=== PATIENT | female | born 1970 | race Caucasian/White ===

== ENCOUNTER 2016-06-08 17:12 | Emergency (ER) | payer MEDICARE ==
[2016-06-08 17:47] LABS: BASOPHIL 0.6 % (0-2); EOSINOPHIL 1.3 % (0-5); HCT 43.3 % (37.0-47.0); HGB 14.9 g/dl (12.5-16.0); LYMPHOCYTE 22.1 % (15-48); MCH 29.2 pg (25.0-31.0); MCHC 34.4 g/dL (32.0-36.0); MCV 84.9 fL (78.0-100.0); MPV 8.7 fL (6.0-9.5); PLT 472 K/uL (150-400); RDW 13.7 % (11.5-14.0); WBC 18.3 K/uL (4.0-10.5)
[2016-06-08 17:57] LABS: INR 0.91 (0.9-1.2); PROTHROMBIN TIME 11.9 SECONDS (11.7-14.0)
[2016-06-08 18:08] LABS: ALBUMIN 4.2 g/dL (3.5-5.0); BILIRUBIN - TOTAL 0.3 mg/dL (0.1-1.0); CREATININE 0.6 mg/dL (0.5-1.0); GLOBULIN (CALCULATION) 2.8 g/dL (2.2-4.2); MAGNESIUM 2.52 mg/dL (1.40-2.10); MYOGLOBIN 21 ng/mL (26-65); POTASSIUM 4.3 mmol/L (3.5-5.1); PRO-BNP 11 pg/mL (0-125); TROPONIN T < 0.010 ng/mL
== END 2016-06-08 19:17 | disposition home or self-care (01) ==
LOC: FER 17:12
PROVIDERS: Emergency Medicine
DX: R00.2 Palpitations (principal); R06.02 Shortness of breath; R51 Headache
CPT/HCPCS: 36415; 71010; 80053; 82550; 82553; 83735; 83874; 83880; 84443; 84484; 85025; 85610; 85730; 93005

== ENCOUNTER 2016-06-12 21:04 | Emergency (ER) | payer MEDICARE | END 2016-06-13 02:06 | disposition home or self-care (01) | LOC: FER 21:04 | DX: J02.0 Streptococcal pharyngitis (principal); J30.9 Allergic rhinitis, unspecified | CPT/HCPCS: 87450; 87804; 87899; J0561 ==

== ENCOUNTER 2020-05-04 23:06 | Emergency (ER) | payer MEDICARE ==
[~2020-05-04 23:06] MED LIST: BACTRIM DS TAB1 EACH PO; FLEXERIL10 MG PO; HYDROCODONE-APA1 TAB PO; IMODIUM2 MG PO; LIDOCAINE 5% P1 EACH TOP; MACROBID100 MG PO; PHENTERMINE H37.5 MG PO; PYRIDIUM200 MG PO; ROBAXIN750 MG PO; ZOFRAN8 MG PO
[2020-05-05 00:53] LABS: BILIRUBIN NEGATIVE (NEGATIVE); BLOOD TRACE-INTACT Ery/uL (NEGATIVE); CLARITY CLEAR (CLEAR); COLOR YELLOW (YELLOW); GLUCOSE (U) NORMAL (NORMAL); LEUKOCYTES NEGATIVE Leu/uL (NEGATIVE); NITRITE NEGATIVE (NEGATIVE); PROTEIN NEGATIVE (NEGATIVE); SPECIFIC GRAVITY >=1.030 (1.001-1.030); UROBILINOGEN 0.2 mg/dL (0.2-1.0); pH 5.5 (5.0-9.0)
[2020-05-05 00:58] LABS: BASOPHIL 0.7 % (0-2); EOSINOPHIL 2.2 % (0-5); HCT 40.1 % (37.0-47.0); HGB 13.6 g/dl (12.5-16.0); LYMPHOCYTE 39.3 % (15-48); MCH 29.5 pg (25.0-31.0); MCHC 33.9 g/dL (32.0-36.0); MONOCYTE 6.4 % (0-12); MPV 8.8 fL (6.0-9.5); NRBC 0; PLT 350 K/uL (150-400); RBC 4.61 M/uL (4.20-5.40); RDW 13.2 % (11.5-14.0); WBC 11.3 K/uL (4.0-10.5)
[2020-05-05 01:05] LABS: AMORPHOUS URATES CRYSTALS MODERATE; BACTERIA TRACE; MUCOUS TRACE
[2020-05-05 01:06] LABS: SQUAMOUS EPITHELIAL CELLS RARE; URINARY WBC RARE
[2020-05-05 01:13] LABS: ALBUMIN 3.2 g/dL (3.4-5.0); BILIRUBIN - TOTAL 0.3 mg/dL (0.2-1.0); BUN/CREAT RATIO (CALC) 19.7 RATIO; CREATININE 0.71 mg/dL (0.51-0.95); GLOBULIN (CALCULATION) 3.8 g/dL; POTASSIUM 3.5 mmol/L (3.5-5.1)
[2020-05-05] MEDS ORDERED: KETOROLAC TROME10 MG PO (03:03)
== END 2020-05-05 03:09 | disposition home or self-care (01) ==
LOC: FER 23:06
PROVIDERS: Emergency Medicine Emergency Medical Services
DX: M54.5 Low back pain (principal); I10 Essential (primary) hypertension
CPT/HCPCS: 36415; 72131; 80053; 81001; 85025; J1885; J2405

== ENCOUNTER 2020-06-20 01:05 | Emergency (ER) | payer MEDICARE ==
[~2020-06-20 01:05] MED LIST changes: +KETOROLAC TROME10 MG PO
[2020-06-20 06:19] LABS: BASOPHIL 0.8 % (0-2); EOSINOPHIL 2.1 % (0-5); HCT 39.2 % (37.0-47.0); HGB 13.5 g/dl (12.5-16.0); LYMPHOCYTE 37.9 % (15-48); MCH 29.8 pg (25.0-31.0); MCHC 34.4 g/dL (32.0-36.0); MCV 86.5 fL (78.0-100.0); MONOCYTE 8.2 % (0-12); MPV 9.3 fL (6.0-9.5); NEUTROPHIL 50.8 % (41-80); PLT 385 K/uL (150-400); RBC 4.53 M/uL (4.20-5.40); RDW 12.6 % (11.5-14.0); WBC 8.7 K/uL (4.0-10.5)
[2020-06-20 06:30] LABS: ALBUMIN 3.4 g/dL (3.4-5.0); BILIRUBIN - TOTAL 0.5 mg/dL (0.2-1.0); BUN/CREAT RATIO (CALC) 22.5 RATIO; CREATININE 0.8 mg/dL (0.51-0.95); GLOBULIN (CALCULATION) 3.6 g/dL; POTASSIUM 3.8 mmol/L (3.5-5.1)
[2020-06-20 06:58] LABS: EOSINOPHIL(M) 2 % (0-5); LYMPHOCYTE(M) 31 % (15-48); MONOCYTE(M) 7 % (0-12); NEUTROPHILS(M) 59 % (41-80); PLATELET ESTIMATE NORMAL; TOTAL CELL COUNT 100; VARIANT LYMPHOCYTE 1
[2020-06-20 06:59] LABS: PLATELET MORPHOLOGY NORMAL
== END 2020-06-20 09:47 | disposition home or self-care (01) ==
LOC: FER 01:05
PROVIDERS: Student in an Organized Health Care Education/Training Program
DX: M51.36 Other intervertebral disc degeneration, lumbar region (principal); Z98.890 Other specified postprocedural states
CPT/HCPCS: 36415; 72157; 72158; 80053; A9579; J1885; J2060; J2270; J2405

== ENCOUNTER 2020-08-29 04:37 | Emergency (ER) | payer MEDICARE ==
[2020-08-29] MEDS ORDERED: CLARITIN10 MG PO (05:42)
[2020-08-29] MEDS ORDERED: FLONASE ALLER15.8 ML (05:42)
== END 2020-08-29 05:59 | disposition home or self-care (01) ==
LOC: FER 04:37
DX: J30.2 Other seasonal allergic rhinitis (principal)
CPT/HCPCS: 99283; J1885

== ENCOUNTER 2021-03-14 01:40 | Emergency (ER) | payer MEDICARE ==
[~2021-03-14 01:40] MED LIST changes: +CLARITIN10 MG PO; +FLONASE ALLER15.8 ML
[2021-03-14] MEDS ORDERED: KETOROLAC TROME10 MG PO (04:03)
[2021-03-14] MEDS ORDERED: CYCLOBENZAPRINE10 MG PO (04:03)
== END 2021-03-14 03:15 | disposition home or self-care (01) ==
LOC: FER 01:40
DX: M54.50 Low back pain, unspecified (principal); G89.29 Other chronic pain
CPT/HCPCS: 96372; 99283; J1170; J1885

== ENCOUNTER 2021-03-19 20:59 | Emergency (ER) | payer MEDICARE ==
[~2021-03-19 20:59] MED LIST changes: +CYCLOBENZAPRINE10 MG PO
[2021-03-19 22:19] LABS: CORONAVIRUS 2019 SARS-COV-2 NEGATIVE (NEGATIVE); INFLUENZA A NAA NEGATIVE (NEGATIVE)
== END 2021-03-19 23:01 | disposition home or self-care (01) ==
LOC: FER 20:59
PROVIDERS: Internal Medicine
DX: B34.9 Viral infection, unspecified (principal); I50.9 Heart failure, unspecified; Z20.822 Contact with and (suspected) exposure to COVID-19
CPT/HCPCS: 99283; U0002

== ENCOUNTER 2021-03-21 18:52 | Emergency (ER) | payer MEDICARE ==
[2021-03-21 22:58] LABS: CORONAVIRUS 2019 SARS-COV-2 NEGATIVE (NEGATIVE); INFLUENZA A NAA NEGATIVE (NEGATIVE)
[2021-03-21 23:01] LABS: BASOPHIL 1.2 % (0-2); EOSINOPHIL 5.7 % (0-5); HCT 42.7 % (37.0-47.0); HGB 14.2 g/dl (12.5-16.0); LYMPHOCYTE 33.6 % (15-48); MCH 28.3 pg (25.0-31.0); MCHC 33.3 g/dL (32.0-36.0); MCV 85.2 fL (78.0-100.0); MONOCYTE 8.5 % (0-12); MPV 8.9 fL (6.0-9.5); NEUTROPHIL 50.5 % (41-80); NRBC 0; PLT 354 K/uL (150-400); RBC 5.01 M/uL (4.20-5.40); RDW 13.4 % (11.5-14.0); WBC 10.3 K/uL (4.0-10.5)
[2021-03-21 23:25] LABS: ALBUMIN 3.7 g/dL (3.4-5.0); BILIRUBIN - TOTAL 0.3 mg/dL (0.2-1.0); BUN/CREAT RATIO (CALC) 21.9 RATIO; CREATININE 0.73 mg/dL (0.51-0.95); GLOBULIN (CALCULATION) 3.8 g/dL; TOTAL PROTEIN 7.5 g/dL (6.4-8.2)
[2021-03-21 23:52] LABS: BILIRUBIN NEGATIVE (NEGATIVE); BLOOD TRACE-INTACT Ery/uL (NEGATIVE); CLARITY CLEAR (CLEAR); COLOR YELLOW (YELLOW); GLUCOSE (U) NORMAL (NORMAL); LEUKOCYTES NEGATIVE Leu/uL (NEGATIVE); NITRITE NEGATIVE (NEGATIVE); PROTEIN NEGATIVE (NEGATIVE); SPECIFIC GRAVITY >=1.030 (1.001-1.030); UROBILINOGEN 0.2 mg/dL (0.2-1.0); pH 5.5 (5.0-9.0)
[2021-03-21 23:57] LABS: SQUAMOUS EPITHELIAL CELLS RARE
== END 2021-03-22 03:27 | disposition home or self-care (01) ==
LOC: FER 18:52
PROVIDERS: Internal Medicine; Physician Assistant
DX: B34.9 Viral infection, unspecified (principal); R91.1 Solitary pulmonary nodule; F17.290 Nicotine dependence, other tobacco product, uncomplicated; Z20.822 Contact with and (suspected) exposure to COVID-19
CPT/HCPCS: 36415; 71046; 71275; 80053; 81001; 84484; 85025; 85379; 93005; J1885; J7040; U0002

== ENCOUNTER 2021-09-04 22:29 | Emergency (ER) | payer MEDICARE ==
[2021-09-04 23:01] LABS: BASOPHIL 0.6 % (0-2); EOSINOPHIL 2.9 % (0-5); HCT 40.3 % (37.0-47.0); HGB 13.8 g/dl (12.5-16.0); MCH 28.7 pg (25.0-31.0); MCHC 34.2 g/dL (32.0-36.0); MCV 83.8 fL (78.0-100.0); MONOCYTE 6.5 % (0-12); MPV 8.9 fL (6.0-9.5); NEUTROPHIL 50.8 % (41-80); NRBC 0; PLT 310 K/uL (150-400); RBC 4.81 M/uL (4.20-5.40); RDW 13.2 % (11.5-14.0); WBC 8.2 K/uL (4.0-10.5)
[2021-09-04 23:21] LABS: ALBUMIN 3.5 g/dL (3.4-5.0); BILIRUBIN - TOTAL 0.4 mg/dL (0.2-1.0); CREATININE 0.86 mg/dL (0.51-0.95); GLOBULIN (CALCULATION) 3.6 g/dL; POTASSIUM 2.7 mmol/L (3.5-5.1); TOTAL PROTEIN 7.1 g/dL (6.4-8.2)
== END 2021-09-05 00:55 | disposition home or self-care (01) ==
LOC: FER 22:29
PROVIDERS: Emergency Medicine
DX: I50.9 Heart failure, unspecified (principal); R07.89 Other chest pain; I25.10 Atherosclerotic heart disease of native coronary artery without angina pectoris; Z79.899 Other long term (current) drug therapy
CPT/HCPCS: 36415; 71045; 80053; 83880; 84484; 85025; 93005; J3480

== ENCOUNTER 2021-11-02 22:17 | Day surgery (SDCO) | payer MEDICARE ==
[~2021-11-02] VITALS: Ht 167.6 cm; Wt 140.0 kg
[2021-11-02 23:28] LABS: BASOPHIL 0.9 % (0-2); EOSINOPHIL 2.2 % (0-5); HCT 44.3 % (37.0-47.0); HGB 15.5 g/dl (12.5-16.0); LYMPHOCYTE 37.1 % (15-48); MCH 28.2 pg (25.0-31.0); MCV 80.7 fL (78.0-100.0); MONOCYTE 7.6 % (0-12); MPV 9.6 fL (6.0-9.5); NRBC 0; PLT 370 K/uL (150-400); RBC 5.49 M/uL (4.20-5.40); RDW 13.3 % (11.5-14.0)
[2021-11-02 23:54] LABS: ALBUMIN 3.9 g/dL (3.4-5.0); BILIRUBIN - TOTAL 0.7 mg/dL (0.2-1.0); BUN/CREAT RATIO (CALC) 14.9 RATIO; CREATININE 0.87 mg/dL (0.51-0.95); GLOBULIN (CALCULATION) 3.4 g/dL; MAGNESIUM 1.4 mg/dL (1.8-2.4); TOTAL PROTEIN 7.3 g/dL (6.4-8.2)
[2021-11-02 23:58] LABS: POTASSIUM 2.4 mmol/L (3.5-5.1)
[2021-11-03 01:56] LABS: CORONAVIRUS 2019 SARS-COV-2 NEGATIVE (NEGATIVE); INFLUENZA A NAA NEGATIVE (NEGATIVE)
[2021-11-03] MEDS ORDERED: CYCLOBENZAPRINE10 MG PO (04:19)
[2021-11-03] MEDS ORDERED: ASPIRIN81 MG PO (04:21)
[2021-11-03] MEDS ORDERED: PHENERGAN12.5 M1 PO (04:22)
[2021-11-03] MEDS ORDERED: OMEPRAZOLE40 MG PO (04:24)
[2021-11-03 06:28] LABS: HCT 39.1 % (37.0-47.0); HGB 13.5 g/dl (12.5-16.0); MCH 28.2 pg (25.0-31.0); MCHC 34.5 g/dL (32.0-36.0); MCV 81.6 fL (78.0-100.0); MPV 9.7 fL (6.0-9.5); RBC 4.79 M/uL (4.20-5.40); RDW 13.3 % (11.5-14.0); WBC 7.5 K/uL (4.0-10.5)
[2021-11-03 06:47] LABS: BUN/CREAT RATIO (CALC) 14.5 RATIO; CREATININE 0.69 mg/dL (0.51-0.95); PHOSPHORUS 4.3 mg/dL (2.6-4.7); POTASSIUM 2.9 mmol/L (3.5-5.1)
[2021-11-03 07:09] LABS: MAGNESIUM 2.2 mg/dL (1.8-2.4)
--- NOTE | 2021-11-03 14:27 | NUR ---
11/03/21 Ms. Pritchard lives with her 22 y/o son. She is supported by [facility] and reports to be able to meet her financial obligations. Ms. Pritchard is independent in the home and community. No discharge planning needs are anticipated.
[2021-11-03 17:46] LABS: CREATININE 0.75 mg/dL (0.51-0.95); POTASSIUM 2.9 mmol/L (3.5-5.1)
[2021-11-04 01:07] LABS: BUN/CREAT RATIO (CALC) 11.4 RATIO; CREATININE 0.7 mg/dL (0.51-0.95); POTASSIUM 3.3 mmol/L (3.5-5.1)
[2021-11-04 07:02] LABS: BUN/CREAT RATIO (CALC) 7.7 RATIO; CREATININE 0.78 mg/dL (0.51-0.95); MAGNESIUM 1.8 mg/dL (1.8-2.4); POTASSIUM 3.5 mmol/L (3.5-5.1)
[2021-11-04] MEDS ORDERED: MAG-OXIDE 400M400 MG PO (08:00)
== END 2021-11-04 08:45 | disposition home or self-care (01) ==
LOC: FER 22:17 → FMS 11-03 00:47
PROVIDERS: Internal Medicine; Nurse Practitioner; ADMIT Internal Medicine
DX: E87.6 Hypokalemia (principal); E83.42 Hypomagnesemia; R20.2 Paresthesia of skin; R25.3 Fasciculation; E66.01 Morbid (severe) obesity due to excess calories; N18.2 Chronic kidney disease, stage 2 (mild); R07.89 Other chest pain; I50.9 Heart failure, unspecified; Z98.84 Bariatric surgery status; Z79.82 Long term (current) use of aspirin; Z20.822 Contact with and (suspected) exposure to COVID-19
CPT/HCPCS: 36415; 70450; 71250; 80048; 80053; 83735; 84100; 84484; 85025; 93005; 94010; C9113; G0378; J2405; J2550; J3475; J3480; J7050; J7120; U0002

== ENCOUNTER 2021-11-07 21:48 | Emergency (ER) | payer MEDICARE ==
[~2021-11-07 21:48] MED LIST changes: +ASPIRIN81 MG PO; +MAG-OXIDE 400M400 MG PO; +OMEPRAZOLE40 MG PO; +PHENERGAN12.5 M1 PO
[2021-11-07 23:17] LABS: BASOPHIL 0.9 % (0-2); EOSINOPHIL 2.6 % (0-5); HCT 42.9 % (37.0-47.0); HGB 14.8 g/dl (12.5-16.0); MCH 28.2 pg (25.0-31.0); MCHC 34.5 g/dL (32.0-36.0); MCV 81.9 fL (78.0-100.0); MONOCYTE 8.5 % (0-12); MPV 9.4 fL (6.0-9.5); NEUTROPHIL 45.8 % (41-80); NRBC 0; PLT 310 K/uL (150-400); RBC 5.24 M/uL (4.20-5.40)
[2021-11-07 23:36] LABS: ALBUMIN 3.8 g/dL (3.4-5.0); BILIRUBIN - TOTAL 0.7 mg/dL (0.2-1.0); CREATININE 0.77 mg/dL (0.51-0.95); GLOBULIN (CALCULATION) 3.3 g/dL; MAGNESIUM 1.5 mg/dL (1.8-2.4); PHOSPHORUS 4.7 mg/dL (2.6-4.7); POTASSIUM 2.7 mmol/L (3.5-5.1); TOTAL PROTEIN 7.1 g/dL (6.4-8.2)
== END 2021-11-08 03:35 | disposition home or self-care (01) ==
LOC: FER 21:48
PROVIDERS: Emergency Medicine
DX: E87.6 Hypokalemia (principal); E83.42 Hypomagnesemia
CPT/HCPCS: 36415; 80053; 83735; 84100; 85025; J1885; J2001; J2405; J3411; J3475; J3480; J7030

== ENCOUNTER 2021-11-17 00:08 | Day surgery (SDCO) | payer MEDICARE ==
[~2021-11-17] VITALS: Ht 167.6 cm; Wt 136.1 kg
[2021-11-17 01:05] LABS: BASOPHIL 0.8 % (0-2); HCT 42.8 % (37.0-47.0); HGB 14.5 g/dl (12.5-16.0); LYMPHOCYTE 36.1 % (15-48); MCH 28.2 pg (25.0-31.0); MCHC 33.9 g/dL (32.0-36.0); MCV 83.1 fL (78.0-100.0); MONOCYTE 7.7 % (0-12); MPV 10.1 fL (6.0-9.5); NEUTROPHIL 53.2 % (41-80); NRBC 0; PLT 350 K/uL (150-400); RBC 5.15 M/uL (4.20-5.40); RDW 14.3 % (11.5-14.0); WBC 8.7 K/uL (4.0-10.5)
[2021-11-17 01:20] LABS: PROTHROMBIN TIME 12.9 SECONDS (11.9-13.9); PTT 27.7 SECONDS (24.9-34.6)
[2021-11-17 01:50] LABS: ALBUMIN 3.8 g/dL (3.4-5.0); BILIRUBIN - TOTAL 0.8 mg/dL (0.2-1.0); BUN/CREAT RATIO (CALC) 2.5 RATIO; CREATININE 0.79 mg/dL (0.51-0.95); GLOBULIN (CALCULATION) 2.7 g/dL; TOTAL PROTEIN 6.5 g/dL (6.4-8.2)
[2021-11-17 02:20] LABS: POTASSIUM 2.6 mmol/L (3.5-5.1)
[2021-11-17] MEDS ORDERED: LASIX10 MG/ML PO (04:50)
[2021-11-17] MEDS ORDERED: LASIX40 MG PO (04:51)
--- NOTE | 2021-11-17 05:56 | NUR ---
PATIENT C/O IV BURNING, ORDER RECIEVED TO D/C IV KCL, STATES SHE IS UNABLE TO TAKE LIQUID POTASSIUM R/T GASTRIC SURGERY, NEW ORDER RECIEVED FOR PO POTSSIUM PENDINF PHARMACY APPROVAL.
[2021-11-17 09:18] LABS: BUN/CREAT RATIO (CALC) 10.4 RATIO; CREATININE 0.67 mg/dL (0.51-0.95); MAGNESIUM 2.6 mg/dL (1.8-2.4)
[2021-11-17 09:27] LABS: POTASSIUM 2.6 mmol/L (3.5-5.1)
[2021-11-17 15:11] LABS: BUN/CREAT RATIO (CALC) 10.3 RATIO; CREATININE 0.68 mg/dL (0.51-0.95); POTASSIUM 3.1 mmol/L (3.5-5.1)
[2021-11-18 07:44] LABS: BUN/CREAT RATIO (CALC) 11.6 RATIO; CREATININE 0.69 mg/dL (0.51-0.95); POTASSIUM 3.1 mmol/L (3.5-5.1)
--- NOTE | 2021-11-18 16:11 | NUR ---
11/18/21 Pt left AMA
== END 2021-11-18 09:23 | disposition left against medical advice (07) ==
LOC: FER 00:08 → FMS 04:30
PROVIDERS: Family Medicine; Internal Medicine; ADMIT Internal Medicine
DX: E87.6 Hypokalemia (principal); R07.89 Other chest pain; I50.9 Heart failure, unspecified; E66.01 Morbid (severe) obesity due to excess calories; Z98.84 Bariatric surgery status; Z79.82 Long term (current) use of aspirin; Z79.899 Other long term (current) drug therapy; Z68.42 Body mass index [BMI] 45.0-49.9, adult
CPT/HCPCS: 36415; 71045; 80048; 80053; 83735; 83880; 84145; 84484; 85025; 85610; 85730; 93005; G0378; J1650; J1885; J2405; J3475; J3480; J7050; J7120